=== PATIENT | female | born 2000 | race Caucasian/White ===

== ENCOUNTER 2020-10-06 19:15 | Inpatient (IN) | payer MEDICAID, SELFPAY ==
[~2020-10-06] VITALS: Ht 175.3 cm; Wt 90.0 kg
[2020-10-06 20:07] LABS: HEMATOCRIT 43.8 % (36.0-47.0); HEMOGLOBIN 14.8 g/dl (12.0-15.5); MEAN CORPUSCULAR HGB CONC 33.8 g/dl (32.0-36.5); MEAN CORPUSCULAR VOLUME 94.6 fl (80.0-96.0); PLATELET COUNT, AUTOMATED 286 10^3/uL (150-450); RED BLOOD COUNT 4.63 10^6/uL (4.00-5.40); WHITE BLOOD COUNT 12.9 10^3/uL (4.0-10.0)
[2020-10-06 20:36] LABS: AMPHETAMINES LEVEL URINE NEGATIVE (NEGATIVE); BARBITURATES URINE NEGATIVE (NEGATIVE); BENZODIAZEPINES URINE NEGATIVE (NEGATIVE); CANNABINOIDS URINE NEGATIVE (NEGATIVE); COCAINE METABOLITE URINE NEGATIVE (NEGATIVE); METHADONE URINE NEGATIVE (NEGATIVE); OPIATES URINE NEGATIVE (NEGATIVE); PHENCYCLIDINE URINE NEGATIVE (NEGATIVE)
[2020-10-06 20:49] LABS: ACETAMINOPHEN LEVEL < 2.0 UG/ML (10.0-30.0); ALBUMIN 4.6 GM/DL (3.2-5.2); ALT/SGPT 18 U/L (12-78); BILIRUBIN,DIRECT 0.2 MG/DL (0.0-0.2); BILIRUBIN,TOTAL 0.8 MG/DL (0.2-1.0); BLOOD UREA NITROGEN 13 MG/DL (7-18); CARBON DIOXIDE LEVEL 25 MEQ/L (21-32); CHLORIDE LEVEL 106 MEQ/L (98-107); CREATININE FOR GFR 0.79 MG/DL (0.55-1.30); ETHYL ALCOHOL (ETHANOL) < 0.003 % (0.000-0.010); GLOMERULAR FILTRATION RATE > 60.0 (>60); GLUCOSE, FASTING 88 MG/DL (70-100); POTASSIUM SERUM 4.1 MEQ/L (3.5-5.1); SALICYLATE LEVEL < 1.7 MG/DL (5.0-30.0); SODIUM LEVEL 138 MEQ/L (136-145); TOTAL PROTEIN 8.4 GM/DL (6.4-8.2)
[2020-10-06] MEDS ORDERED: traZODone 50 MG TAB PO PRN (22:50)
[2020-10-06] MEDS ORDERED: MAALOX 30 ML SUSP *UDC PO PRN (22:50)
[2020-10-06] MEDS ORDERED: MOM 30ML SUSPENSION UDC PO PRN (22:50)
[2020-10-07 00:19] LABS: HCG, SERUM QUALITATIVE NEGATIVE (NEGATIVE)
[2020-10-07 01:04] VITALS: BP 128/86
[2020-10-07 06:47] VITALS: BP 147/75
[2020-10-07] MEDS ORDERED: ESCITALOPRAM OXALATE 5MG TABLET (LEXAPRO) PO ONE (08:30)
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
[2020-10-07 16:24] VITALS: BP 128/61
[2020-10-07] MEDS: lamoTRIgine 25MG TAB PO SCH (21:50)
[2020-10-08 06:00] VITALS: BP 152/72
[2020-10-08 16:14] VITALS: BP 136/74
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
[2020-10-08] MEDS: lamoTRIgine 25MG TAB PO SCH (20:59)
[2020-10-09 06:34] VITALS: BP 140/65
[2020-10-09] MEDS: CitaloPRAM (CeleXA) 10 MG TABLET PO SCH (09:24)
[2020-10-09 16:21] VITALS: BP 126/60
[2020-10-09 18:55] LABS: HEMATOCRIT 42.2 % (36.0-47.0); HEMOGLOBIN 14.1 g/dl (12.0-15.5); MEAN CORPUSCULAR HEMOGLOBIN 32.1 pg (27.0-33.0); MEAN CORPUSCULAR HGB CONC 33.4 g/dl (32.0-36.5); MEAN CORPUSCULAR VOLUME 96.1 fl (80.0-96.0); PLATELET COUNT, AUTOMATED 326 10^3/uL (150-450); RED BLOOD COUNT 4.39 10^6/uL (4.00-5.40)
[2020-10-09] MEDS: lamoTRIgine 25MG TAB PO SCH (20:48)
[2020-10-09] MEDS: ACETAMINOPHEN TAB 650MG DOSE (2X325MG) PO PRN (21:05)
[2020-10-09] MEDS: CEPACOL LOZENGE PO PRN (21:50)
[2020-10-10 06:25] VITALS: BP 153/85
[2020-10-10] MEDS: CitaloPRAM (CeleXA) 10 MG TABLET PO SCH (09:44)
[2020-10-10] MEDS: CEPACOL LOZENGE PO PRN ×3 (14:05→22:24)
[2020-10-10 16:30] VITALS: BP 112/58
[2020-10-10] MEDS: lamoTRIgine 25MG TAB PO SCH (21:48)
[2020-10-10] MEDS: ACETAMINOPHEN TAB 650MG DOSE (2X325MG) PO PRN (22:25)
[2020-10-11 06:00] VITALS: BP 140/80
[2020-10-11] MEDS: PILL CUTTER 1 EACH XX PRN (08:21)
[2020-10-11] MEDS: CitaloPRAM (CeleXA) 10 MG TABLET PO SCH (08:22)
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
[2020-10-11] MEDS: CEPACOL LOZENGE PO PRN ×3 (11:17→22:10)
--- NOTE | 2020-10-11 13:26 | IPNPDOC ---
Text Note Date of Service The patient was seen on 10/11/20. NOTE Subjective: Patient seen and examined in examination room. Patient notes right sided sore throat, which started before admission to hospital, around 10/05/20 as per patient. Denies any chills/fevers or cough. States she has had strep throat in the past. PHYSICAL EXAMINATION: VITAL SIGNS: See below General: NAD, sitting comfortably in chair HEENT: NC/AT, EOMI, mild erythema oropharynx, no appreciable lymphadenopathy Lungs: CTA B/L Heart: +S1S2, RRR Abd: soft, NT, +BS LABORATORY DATA: See below. MICROBIOLOGY: Please see below. A/P: 20 year old female admitted to [facility] for suicidal ideation complicated with other psychiatric disorders, complains of sore throat. #acute pharyngitis - check respiratory panel, monoscreen, throat culture - strep screen negative, no leukocytosis on CBC - symptom control for now #SI/psych - follow as per primary team #home safety - follow as per licensed social worker/case management and psychiatry Thank you for this consultation. We will continue to follow. VS,Fishbone, I+O VS, Fishbone, I+O Vital Signs Date Time Temp Pulse Resp B/P (MAP) Pulse Ox O2 Delivery O2 Flow Rate FiO2 10/11/20 06:00 99.4 75 20 140/80 (100) 97 10/10/20 16:30 Room Air MARTHA PLUMMER MD Oct 11, 2020 13:26
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
[2020-10-11 14:54] LABS: MONO SCRN NEGATIVE (NEGATIVE)
[2020-10-11] MEDS: ACETAMINOPHEN TAB 650MG DOSE (2X325MG) PO PRN ×2 (15:42→22:11)
[2020-10-11 18:54] VITALS: BP 147/71
[2020-10-11] MEDS: lamoTRIgine 25MG TAB PO SCH (21:11)
[2020-10-12 07:17] VITALS: BP 136/75
--- NOTE | 2020-10-12 09:02 | MHIPN ---
[facility] PROGRESS NOTE DATE: 10/10/2020 Vital signs: Blood pressure 112/58, pulse 66, temperature 98.3. CHIEF COMPLAINT: Feels a bit down. SUBJECTIVE: Seen for followup. This is a video assessment. Says has felt a bit down, says has a sore throat, lozenges have helped with it. Moods are okay. Denies any suicidal thoughts or intents. MENTAL STATUS EXAMINATION: Neat, cooperative, no agitation, no psychomotor retardation, coherent. Affect is restricted in range. Denies suicidal thoughts or intents at present, no homicidal ideas or intents, no evidence of any psychosis. Cognition grossly intact. Judgment and insight fair. ASSESSMENT: Unspecified depressive disorder. Rule out major depressive disorder. PLAN: Continue current care, observations, and if symptoms related to the throat persist, will have the hospitalist see her. Further recommendations will be made when she sees the clinicians tomorrow.
[2020-10-12] MEDS: CitaloPRAM (CeleXA) 10 MG TABLET PO SCH (09:06)
[2020-10-12] MEDS: CEPACOL LOZENGE PO PRN ×2 (09:07→16:47)
[2020-10-12] MEDS: ACETAMINOPHEN TAB 650MG DOSE (2X325MG) PO PRN (09:07)
[2020-10-12] MEDS: PILL CUTTER 1 EACH XX PRN (09:08)
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
[2020-10-12 18:08] VITALS: BP 130/64
[2020-10-12] MEDS: lamoTRIgine 25MG TAB PO SCH (20:45)
[2020-10-13 06:00] VITALS: BP 126/61
[2020-10-13] MEDS: CitaloPRAM (CeleXA) 10 MG TABLET PO SCH (08:40)
[2020-10-13] MEDS: CEPACOL LOZENGE PO PRN ×3 (08:41→20:42)
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
[2020-10-13 17:58] VITALS: BP 135/74
[2020-10-13] MEDS: lamoTRIgine 25MG TAB PO SCH (20:42)
[2020-10-13] MEDS: ACETAMINOPHEN TAB 650MG DOSE (2X325MG) PO PRN (20:43)
[2020-10-14 06:35] VITALS: BP 129/60
[2020-10-14] MEDS: CitaloPRAM (CeleXA) 10 MG TABLET PO SCH (08:58)
[2020-10-14] MEDS: CEPACOL LOZENGE PO PRN ×2 (11:23→21:24)
[2020-10-14] MEDS: ACETAMINOPHEN TAB 650MG DOSE (2X325MG) PO PRN ×2 (14:58→21:25)
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
[2020-10-14] MEDS: lamoTRIgine 25MG TAB PO SCH (21:24)
[2020-10-15 06:41] VITALS: BP 124/60
[2020-10-15] MEDS: CitaloPRAM (CeleXA) 10 MG TABLET PO SCH (08:46)
[2020-10-15] MEDS: ACETAMINOPHEN TAB 650MG DOSE (2X325MG) PO PRN (12:54)
[2020-10-15] MEDS: CEPACOL LOZENGE PO PRN (12:54)
[2020-10-15] MEDS: NYSTATIN 500,000 U/5 ML SUSP UDC SS SCH ×3 (13:00→20:43)
--- NOTE | 2020-10-15 15:36 | MHIPNPDOC ---
[facility] Progress Note Progress Note DATE OF SERVICE: 10/15/20 SUBJECTIVE: "I'm doing fine. I slept well."I have sore throat, Medical doctor came and saw me. Now i have ear ache. I am waiting for my doctor. SUBJECTIVE: She is a 20-year-old female living with her boyfriend. She was admitted because of suicidal thoughts and planned to cut her wrists. The patient had arguments with her boyfriend went to her tent and thought of cutting her wrists but she changed her mind and she called the police, and she was brought to the Emergency Room. This is her first psychiatric hospitalization. She has seen therapists before. Currently she is doing well, interacting with peers and staff. She does not want her medications to be raised. Pt having some physical complaints, seen by hospitalist.Pt interacting with the staff and peers. Sleep is normal. MENTAL STATUS EXAMINATION: Casually dressed, cooperative. Made good eye contact. Speech rate, rhythm and volume are good. Thought process linear goal directed. Mood is slightly depressed and anxious. Affect is mood congruent. Thought content denied any suicidal or homicidal ideas. Denied any hallucinations. Her insight and judgment are limited. CURRENT MEDICATIONS: 1. Lamictal 25 mg once daily. 2. Citalopram 5 mg daily. 3. Trazodone 50 mg at bedtime if needed. DIAGNOSES: 1. Depressive disorder, unspecified. 2. Rule out major depressive disorder. 3. Rule out borderline personality traits. 4. History of ADHD. LABORATORY STUDIES: CBC, CMP within normal limits. Toxicology was negative. ESTIMATED LENGTH OF STAY: 4-5 days. PLAN: 1. Continue current medications. 2. [facility].HISTORY: . Time spent : 25 Minutes Vital Signs Vital Signs Date Time Temp Pulse Resp B/P (MAP) Pulse Ox O2 Delivery O2 Flow Rate FiO2 10/15/20 10:30 Room Air 10/15/20 06:41 98.7 59 18 124/60 (81) 98 Current Medications Current Medications Medications (Trade) Dose Ordered Sig/Aleksandra Route PRN Reason Start Time Stop Time Status Last Admin Dose Admin Acetaminophen (Tylenol Tab) 650 mg Q6HP PRN PO HEADACHE or DISCOMFORT 10/06/20 22:50 10/15/20 12:54 Al Hydrox/Mg Hydrox/Simethicone (Mylanta) 30 ml Q4HP PRN PO HEARTBURN/INDIGESTION 10/06/20 22:50 Cetylpyridinium Chloride (Cepacol) 1 arjun Q2HP PRN PO COUGH 10/09/20 21:25 10/15/20 12:54 Citalopram Hydrobromide (CeleXA) 5 mg QAM PO 10/09/20 09:00 10/15/20 08:46 Home Med (Med Rec Complete!) ASDIRECTED XX 10/06/20 22:50 10/06/20 22:52 DC Lamotrigine (LaMICtal) 25 mg QHS PO 10/07/20 21:00 10/14/20 21:24 Lidocaine/ Diphenhydr/Alum/ Mg/Simeth (Magic Mouthwash) 5ML AC SSP 10/15/20 17:30 Magnesium Hydroxide (Milk Of Magnesia) 30 ml DAILYPRN PRN PO CONSTIPATION 10/06/20 22:50 Nystatin (Mycostatin) 5 ml QID SS 10/15/20 13:00 10/23/20 09:00 Trazodone HCl (Desyrel) 50 mg QHSP PRN PO INSOMNIA 10/06/20 22:50 Allergies Coded Allergies: No Known Allergies (Verified Allergy, Unknown, 10/06/20) ZAIN HUFFMAN MD Oct 15, 2020 15:36
[2020-10-15] MEDS: MAGIC MOUTHWASH SUSPENSION BTL SSP SCH (18:21)
[2020-10-15 19:55] VITALS: BP 118/68
[2020-10-15] MEDS: lamoTRIgine 25MG TAB PO SCH (20:43)
--- NOTE | 2020-10-15 22:34 | IPNPDOC ---
Subjective Date Seen The patient was seen on 10/15/20. Subjective Chief Complaint/HPI Complains of right ear pain which started yesterday. Her sore throat has been going on for a week now and she has been using lozenges, oral gargles and drinking warm fluids without much improvement. Objective Physical Examination General Exam: Positive: Alert, Cooperative, No Acute Distress Eye Exam: Positive: PERRLA, Conjunctiva & lids normal, EOMI; Negative: Sclera icteric ENT Exam: Positive: Tongue Midline, Pharyngeal Edema, Tympanic Membranes Normal, Ext Auditory Canal Nml, Pinna Normal, Other ENT (tongue coated, both tonsils enlarged left >right with some white spots, white plaques around the Uvula) Chest Exam: Positive: Clear to auscultation, Normal air movement Heart Exam: Positive: Rate Normal, Regular Rhythm, Normal S1, Normal S2; Negative: Murmurs, Rubs Abdomen Exam: Positive: Normal bowel sounds, Soft; Negative: Tenderness, Hepatospenomegaly Extremity Exam: Negative: Clubbing, Cyanosis, Edema Skin Exam: Positive: Nl turgor and temperature; Negative: Rash, Breakdown Assessment /Plan Assessment 20 year old female admitted to [facility] for suicidal ideation complicated with other psychiatric disorders complains of sore throat going on from 10/05/20 and now also having right ear pain from yesterday. Exam of the throat shows thrush around the uvula. Oral thrush will start on nystatin swish and swallow. Right ear pain Otoscopy showed normal external auditory canals, normal tympanic membrane. No wax on the left, minimal on the right. Right ear pain is likely referred from the throat. Pharyngitis likely fungal. strep screen negative, Monoscreen negative throat culture negative, Resp panel negative will start on nystatin. SI/psych follow as per primary team VS, I&O, 24H, Fishbone Vital Signs/I&O Vital Signs Date Time Temp Pulse Resp B/P (MAP) Pulse Ox O2 Delivery O2 Flow Rate FiO2 10/15/20 10:30 Room Air 10/15/20 06:41 98.7 59 18 124/60 (81) 98 Laboratory Data Microbiology Microbiology 10/11/20 Eye/Ear/Nose/Throat Culture - Final, Complete 10/11/20 Respiratory Virus Panel (PCR) ([facility]) - Final, Complete 10/09/20 Group A Streptococcus Screen ([facility]) - Final, Complete 10/09/20 Group A Streptococcus Screen ([facility]) - Final, Complete 10/06/20 Respiratory Virus Panel (PCR) ([facility]) - Final, Complete ANEL PIZARRO MD Oct 15, 2020 12:38
[2020-10-16] MEDS: MAGIC MOUTHWASH SUSPENSION BTL SSP SCH ×3 (06:43→17:20)
[2020-10-16 07:50] VITALS: BP 143/66
[2020-10-16] MEDS: PILL CUTTER 1 EACH XX PRN (08:50)
[2020-10-16] MEDS: CitaloPRAM (CeleXA) 10 MG TABLET PO SCH (08:50)
[2020-10-16] MEDS: NYSTATIN 500,000 U/5 ML SUSP UDC SS SCH ×4 (08:50→20:45)
[2020-10-16 16:53] VITALS: BP 122/62
[2020-10-16] MEDS: lamoTRIgine 25MG TAB PO SCH (20:45)
[2020-10-17 06:00] VITALS: BP 146/67
[2020-10-17] MEDS: MAGIC MOUTHWASH SUSPENSION BTL SSP SCH ×3 (07:37→17:26)
[2020-10-17] MEDS: CitaloPRAM (CeleXA) 10 MG TABLET PO SCH (08:58)
[2020-10-17] MEDS: NYSTATIN 500,000 U/5 ML SUSP UDC SS SCH ×4 (08:58→20:55)
[2020-10-17] MEDS: PILL CUTTER 1 EACH XX PRN (08:58)
[2020-10-17 19:19] VITALS: BP 159/73
[2020-10-17] MEDS: lamoTRIgine 25MG TAB PO SCH (20:55)
[2020-10-18 06:37] VITALS: BP 111/73
[2020-10-18] MEDS: NYSTATIN 500,000 U/5 ML SUSP UDC SS SCH ×2 (08:04→12:39)
[2020-10-18] MEDS: CitaloPRAM (CeleXA) 10 MG TABLET PO SCH (08:04)
[2020-10-18] MEDS: MAGIC MOUTHWASH SUSPENSION BTL SSP SCH ×2 (08:04→11:44)
[2020-10-18] MEDS: PILL CUTTER 1 EACH XX PRN (08:04)
[2020-10-18] MEDS ORDERED: LAMI25TA PO (10:00)
[2020-10-18] MEDS ORDERED: CELE10TA PO (10:00)
[2020-10-18] MEDS ORDERED: NYST50SS SS (11:30)
[2020-10-18] MEDS ORDERED: MAGICMW SSP (11:32)
--- NOTE | 2020-10-18 11:33 | MHDS ---
[facility] DISCHARGE SUMMARY DATE OF ADMISSION: 10/06/2020 DATE OF DISCHARGE: 10/18/2020 DIAGNOSES: 1. Depressive disorder, unspecified. 2. Rule out major depressive disorder. 3. Rule out borderline personality traits. 4. History of attention deficit hyperactivity disorder (ADHD). IDENTIFYING DATA: She is a 20-year-old female living with her boyfriend who was admitted because of suicidal thoughts, planned to cut her wrists. The patient had an argument with her boyfriend, went into her tent, planned cutting her wrists, but changed her mind and called the police. For history of present illness (HPI), past psychiatric history, personal history, medical history, please refer to initial evaluation. COURSE IN THE HOSPITAL: Patient initially was depressed. Affect was labile. She was placed on citalopram and lamotrigine. She was also given individual, group and milieu therapy. Patient's depression resolved. She started coming out from her room, attended groups and activities and was stable at the time of discharge. Denied any side effects of the medications. Denied any suicidal or homicidal ideas. MENTAL STATUS EXAMINATION:Neatly dressed good grooming, alert oriented times 3, mood euthymic affect broad range, Denied A/V hallucinations, Denied S/H ideas. Insight and judgements are good VITAL SIGNS: Temperature 98.3, respiratory rate 12, pulse 62, blood pressure 111/73. LABORATORY DATA: CBC within normal limits. CMP within normal limits. Toxicology: Negative. MEDICATIONS: - citalopram 5 mg in the morning - lamotrigine 25 mg at night PLAN: Discharge her to [facility] and will be followed up at [facility]. TIME SPENT: Less than 30 minutes. [facility]
== END 2020-10-18 14:35 | disposition home or self-care (01) | DRG 754 ==
LOC: M ED 19:15 → M ED INP 23:32 → M PSY 10-07 01:12
PROVIDERS: ADMIT Psychiatry & Neurology Psychiatry; ATTEND Psychiatry & Neurology Psychiatry
DX: F32.9 Major depressive disorder, single episode, unspecified (principal); R45.851 Suicidal ideations; F90.9 Attention-deficit hyperactivity disorder, unspecified type; F60.3 Borderline personality disorder; J02.9 Acute pharyngitis, unspecified

== ENCOUNTER 2021-03-12 00:07 | Emergency (ER) | payer OTHER ==
[~2021-03-12] VITALS: Ht 172.7 cm; Wt 100.0 kg
[~2021-03-12 00:07] MED LIST: CELE10TA PO; LAMI25TA PO; MAGICMW SSP; NYST50SS SS
[2021-03-12 02:24] LABS: HEMATOCRIT 45.1 % (36.0-47.0); HEMOGLOBIN 15.2 g/dl (12.0-15.5); MEAN CORPUSCULAR HEMOGLOBIN 31.5 pg (27.0-33.0); MEAN CORPUSCULAR HGB CONC 33.7 g/dl (32.0-36.5); MEAN CORPUSCULAR VOLUME 93.4 fl (80.0-96.0); PLATELET COUNT, AUTOMATED 335 10^3/uL (150-450); RED BLOOD COUNT 4.83 10^6/uL (4.00-5.40); WHITE BLOOD COUNT 9.6 10^3/uL (4.0-10.0)
[2021-03-12 03:02] LABS: HCG, SERUM QUALITATIVE NEGATIVE (NEGATIVE)
[2021-03-12 03:07] LABS: ACETAMINOPHEN LEVEL < 2.0 UG/ML (10.0-30.0); ALT/SGPT 20 U/L (12-78); BILIRUBIN,DIRECT < 0.1 MG/DL (0.0-0.2); BILIRUBIN,TOTAL 0.2 MG/DL (0.2-1.0); BLOOD UREA NITROGEN 12 MG/DL (7-18); CALCIUM LEVEL 9.7 MG/DL (8.5-10.1); CARBON DIOXIDE LEVEL 28 MEQ/L (21-32); CHLORIDE LEVEL 106 MEQ/L (98-107); CREATININE FOR GFR 0.74 MG/DL (0.55-1.30); ETHYL ALCOHOL (ETHANOL) < 0.003 % (0.000-0.010); GLOMERULAR FILTRATION RATE > 60.0 (>60); GLUCOSE, FASTING 99 MG/DL (70-100); POTASSIUM SERUM 4.4 MEQ/L (3.5-5.1); SALICYLATE LEVEL < 1.7 MG/DL (5.0-30.0); SODIUM LEVEL 140 MEQ/L (136-145); TOTAL PROTEIN 7.9 GM/DL (6.4-8.2)
[2021-03-12 04:47] LABS: AMPHETAMINES LEVEL URINE NEGATIVE (NEGATIVE); BARBITURATES URINE NEGATIVE (NEGATIVE); BENZODIAZEPINES URINE NEGATIVE (NEGATIVE); CANNABINOIDS URINE NEGATIVE (NEGATIVE); COCAINE METABOLITE URINE NEGATIVE (NEGATIVE); METHADONE URINE NEGATIVE (NEGATIVE); OPIATES URINE NEGATIVE (NEGATIVE); PHENCYCLIDINE URINE NEGATIVE (NEGATIVE)
[2021-03-12 06:14] VITALS: BP 114/71
== END 2021-03-12 06:15 | disposition home or self-care (01) ==
LOC: M ED 00:07
DX: F43.20 Adjustment disorder, unspecified (principal); F33.9 Major depressive disorder, recurrent, unspecified; F90.9 Attention-deficit hyperactivity disorder, unspecified type; Z79.899 Other long term (current) drug therapy; F12.20 Cannabis dependence, uncomplicated